=== PATIENT | male | born 1970 | race Caucasian/White ===

== ENCOUNTER 2018-06-28 15:23 | Emergency (ER) | payer MEDICARE ==
[~2018-06-28] VITALS: Ht 182.9 cm; Wt 99.8 kg
[~2018-06-28 15:23] MED LIST: ACETAMINOP160 MG/12 PER TUBE; AMANTADINE100 M1 PO; AMARYL2 MG PO; AZITHROMYCIN 2250 MG PO; BISACODYL SUPP10 MG RECTAL; BUTRANS1 EAC2; CATHFLO ACT2 MG/VIA1 IJ; CEFTIN 250 MG250 MG PO; CIPRO500 MG PO; CLEOCIN HCL150 MG PO; CLONAZEPAM 0.50.5 M1 PO; CLONAZEPAM 1 MG1 M1 PO; COL-RITE100 MG PO; CYMBALTA60 MG PO; DUONEB 2.5-0.5 M3 ML INH; FENOFIBRATE160 MG PO; FENTANYL 0.50 MCG/ML IV PUSH; FLAGYL500 MG PO; FLEXERIL PO; FLONASE 0.05%50 MCG NASAL; GABAPENTIN 100100 MG PO; GLIMEPIRIDE2 MG PO; GLUCOPHAGE XR500 MG PO; GLUCOSE TEST S1 EACH IN; GLYBURIDE 2.52.5 M1 PO; HALOPERIDOL2 MG/1 ML PER TUBE; HALOPERIDOL5 MG/1 M1 IV; KLONOPIN0.5 MG PO; KLOR-CON 1010 MEQ PO; LANTUS SOL100 UNIT/1 SQ; LANTUS100 UNIT/M SUBQ; LEVAQUIN 500 M500 M2 PO; LEVAQUIN 750 M750 MG; LEVAQUIN 750 M750 MG PO; LIDODERM 5%1 PATC1 TRANSDERM; LIORESAL 10 MG10 MG PO; LORAZEPAM 22 MG/1 ML IV PUSH; LORAZEPAM I2 MG/1 ML PER TUBE; LYRICA 50 MG50 MG PO; MURO-128 OPHTH3.5 G1 OP; NEURONTIN 300300 M1 PO; NEURONTIN 400400 M1 PO; NEURONTIN600 MG PO; NORFLEX100 MG PO; NORVASC5 MG PO; NOVOLIN N100 UNIT/3 SQ; NOVOLOG100 UNIT/1 SUBQ; ONDANSETRON4 MG/2 M1 IV; OXYCODONE HCL 55 MG PO; OXYCODONE HCL10 MG PER TUBE; OXYCODONE HCL10 MG PO; OXYCONTIN20 M1 PO; PANTOPRAZOLE SO40 M1 PO; PERCOCET 5-3251 EACH PO; PERCOCET 7.5-31 EACH PO; PRAVACHOL20 MG PO; PRAVASTATIN SOD10 MG PO; PROTONIX 440 MG/VIA1 IV; PROTONIX40 M1 PO; REMERON15 MG PO; RIVASTIGMINE1 EAC1; TRAZODONE HCL100 MG PO; TRIAMCINOLONE A80 G2 TOP; VANCOMYCIN1.25 GM/21 IV; VENTOLIN HFA 1818 GM INH; VIAGRA50 MG PO; ZANAFLEX4 MG PO; ZESTRIL2.5 MG PO
[2018-06-28 16:33] VITALS: BP 103/78
== END 2018-06-28 16:35 | disposition left against medical advice (07) ==
LOC: M.ERS 15:23
DX: Z48.01 Encounter for change or removal of surgical wound dressing (principal); E11.9 Type 2 diabetes mellitus without complications; G89.29 Other chronic pain; M54.9 Dorsalgia, unspecified; F17.210 Nicotine dependence, cigarettes, uncomplicated; Z88.0 Allergy status to penicillin; Z88.8 Allergy status to other drugs, medicaments and biological substances

== ENCOUNTER 2018-07-06 20:41 | Emergency (ER) | payer MEDICARE, BC ==
[~2018-07-06] VITALS: Ht 182.9 cm; Wt 102.1 kg
[2018-07-06] MEDS ORDERED: NEURONTIN 300300 M1 PO (20:52)
[2018-07-06] MEDS ORDERED: MIDODRINE HCL 55 M1 (20:52)
[2018-07-06] MEDS ORDERED: DULOXETINE HCL30 MG PO (20:53)
[2018-07-06 21:31] LABS: ABSOLUTE BASOPHILS 0.1 thou/uL (0.0-0.2); ABSOLUTE EOSINOPHILS 0.2 thou/uL (0.0-0.7); ABSOLUTE LYMPHOCYTES 3.3 thou/uL (0.8-5.3); ABSOLUTE MONOCYTES 0.5 thou/uL (0.0-1.2); ABSOLUTE NEUTROPHILS 4.2 thou/uL (1.6-8.1); EOSINOPHILS 2.7 %; HEMATOCRIT 38.1 % (42.0-52.0); HEMOGLOBIN 12.6 gm/dL (14.0-18.0); MCH 29.5 pg (26.0-34.0); MCHC 33.1 g/dL (28.0-37.0); MCV 88.9 fL (80.0-100.0); MONOCYTES 6.4 %; MPV 8.2 fl. (7.2-11.1); NUCLEATED RBCS 0 /100WBC; PLATELET COUNT* 269 thou/uL (150-400); POLYS 49.9 %; RBC 4.28 mil/uL (4.50-6.00); RDW-CV 13.1 % (10.5-14.5); WBC 8.3 thou/uL (4.0-11.0)
[2018-07-06 21:35] LABS: URINE BILIRUBIN NEGATIVE (Negative); URINE BLOOD NEGATIVE (Negative); URINE CLARITY CLEAR; URINE COLOR YELLOW; URINE GLUCOSE-RANDOM 1+ (Negative); URINE KETONES NEGATIVE (Negative); URINE LEUKOCYTES NEGATIVE (Negative); URINE NITRITE NEGATIVE (Negative); URINE PROTEIN NEGATIVE (Negative); URINE UROBILINOGEN 0.2 E.U./dl (0.2-1.0)
[2018-07-06 21:39] LABS: CALCIUM 8.6 mg/dL (8.5-10.1); CREATININE 0.8 mg/dL (0.6-1.3); POTASSIUM 3.9 mmol/L (3.5-5.1)
[2018-07-06 21:49] LABS: ALBUMIN 3.6 g/dL (3.4-5.0); TOTAL BILIRUBIN 0.5 mg/dL (<0.1-1.0); TOTAL PROTEIN 7.3 g/dL (6.4-8.2)
[2018-07-06 23:34] VITALS: BP 122/70
== END 2018-07-06 23:36 | disposition home or self-care (01) ==
LOC: M.ERS 20:41
PROVIDERS: Nurse Practitioner Family
DX: G89.18 Other acute postprocedural pain (principal); R10.31 Right lower quadrant pain; E11.65 Type 2 diabetes mellitus with hyperglycemia; R19.7 Diarrhea, unspecified; G89.29 Other chronic pain; M54.9 Dorsalgia, unspecified; F17.210 Nicotine dependence, cigarettes, uncomplicated; Z88.0 Allergy status to penicillin; Z88.8 Allergy status to other drugs, medicaments and biological substances; Z79.4 Long term (current) use of insulin

== ENCOUNTER 2020-03-10 16:12 | Emergency (ER) | payer MEDICARE, BC ==
[~2020-03-10] VITALS: Ht 182.9 cm; Wt 95.3 kg
[~2020-03-10 16:12] MED LIST changes: +DULOXETINE HCL30 MG PO; +MIDODRINE HCL 55 M1
[2020-03-10 16:50] LABS: ABSOLUTE EOSINOPHILS 0.1 thou/uL (0.0-0.7); ABSOLUTE LYMPHOCYTES 2.1 thou/uL (0.8-5.3); ABSOLUTE MONOCYTES 0.4 thou/uL (0.0-1.2); ABSOLUTE NEUTROPHILS 4.9 thou/uL (1.6-8.1); BASOPHILS 0.5 %; EOSINOPHILS 0.9 %; HEMATOCRIT 41.1 % (42.0-52.0); HEMOGLOBIN 14.3 gm/dL (14.0-18.0); LYMPHOCYTES 27.6 %; MCH 30.3 pg (26.0-34.0); MCHC 34.8 g/dL (28.0-37.0); MCV 87.1 fL (80.0-100.0); MPV 7.6 fl. (7.2-11.1); NUCLEATED RBCS 0 /100WBC; PLATELET COUNT* 210 thou/uL (150-400); RBC 4.72 mil/uL (4.50-6.00); RDW-CV 12.6 % (10.5-14.5); WBC 7.5 thou/uL (4.0-11.0)
[2020-03-10 17:00] LABS: CALCIUM 8.5 mg/dL (8.5-10.1)
[2020-03-10 17:05] LABS: ALBUMIN 3.4 g/dL (3.4-5.0); TOTAL BILIRUBIN 0.4 mg/dL (<0.1-1.0); TOTAL PROTEIN 7.1 g/dL (6.4-8.2)
[2020-03-10 17:22] LABS: ALCOHOL < 10 mg/dL (<10); SALICYLATE < 2.8 mg/dL (2.8-20.0)
[2020-03-10 17:24] LABS: ACETAMINOPHEN < 2 ug/mL (10-30)
[2020-03-10] MEDS ORDERED: GABAPENTIN800 M1 (17:32)
[2020-03-10] MEDS ORDERED: DULOXETINE HCL60 MG (17:32)
[2020-03-10] MEDS ORDERED: DULOXETINE HCL30 MG PO (17:32)
[2020-03-10] MEDS ORDERED: CIALIS5 MG PO (17:33)
[2020-03-10] MEDS ORDERED: VITAMIN K100 MCG PO (17:33)
[2020-03-10] MEDS ORDERED: SINGULAIR 10 MG10 M1 PO (17:33)
[2020-03-10] MEDS ORDERED: DHEA25 M1 PO (17:33)
[2020-03-10] MEDS ORDERED: SUPER B-50 COM1 EACH PO (17:34)
[2020-03-10] MEDS ORDERED: LANTUS SUBQ (17:34)
[2020-03-10] MEDS ORDERED: [UNRECOGNIZED DRUG - OTHER] (17:34)
[2020-03-10] MEDS ORDERED: NOVOLOG100 UNIT/1 SUBQ (17:34)
[2020-03-10] MEDS ORDERED: CLONAZEPAM 0.50.5 M1 PO (17:35)
[2020-03-10] MEDS ORDERED: FLEXERIL (17:35)
[2020-03-10 20:23] LABS: URINE BILIRUBIN NEGATIVE (Negative); URINE BLOOD NEGATIVE (Negative); URINE CLARITY CLEAR; URINE COLOR YELLOW; URINE GLUCOSE-RANDOM 3+ (Negative); URINE KETONES NEGATIVE (Negative); URINE LEUKOCYTES-REFLEX NEGATIVE (Negative); URINE NITRITE-REFLEX NEGATIVE (Negative); URINE PROTEIN NEGATIVE (Negative); URINE UROBILINOGEN 0.2 E.U./dl (0.2-1.0)
[2020-03-10 20:31] LABS: AMP/METHAMP Negative (Negative); BARBITURATES Negative (Negative); BENZODIAZEPINES Negative (Negative); COCAINE Negative (Negative); METHADONE Negative (Negative); OPIATES Negative (Negative); PCP Negative (Negative); THC POSITIVE (Negative)
[2020-03-10 21:53] VITALS: BP 115/85
== END 2020-03-10 22:18 ==
LOC: M.ERS 16:12
PROVIDERS: Family Medicine
DX: R45.851 Suicidal ideations (principal); F41.9 Anxiety disorder, unspecified; E11.9 Type 2 diabetes mellitus without complications; G89.29 Other chronic pain; I25.2 Old myocardial infarction; F17.210 Nicotine dependence, cigarettes, uncomplicated; F12.10 Cannabis abuse, uncomplicated; Z79.4 Long term (current) use of insulin; Z79.899 Other long term (current) drug therapy; Z88.0 Allergy status to penicillin; Z88.8 Allergy status to other drugs, medicaments and biological substances